=== PATIENT | male | born 1955 | race Caucasian/White ===

== ENCOUNTER 2022-12-28 11:27 | Emergency (ER) | payer OTHER ==
[~2022-12-28] VITALS: Ht 167.6 cm; Wt 103.6 kg
[2022-12-28] MEDS ORDERED: METOPROLOL 5 MG/5 ML VIAL IV STA (13:20)
[2022-12-28] MEDS ORDERED: METOPROLOL TART 25 MG TABLET PO ONE (13:20)
[2022-12-28 13:59] LABS: BASO % 0.4 % (0.0-1.0); EOS # 0.2 10^3/uL (0.0-0.5); EOS % 1.5 % (0.0-3.0); HEMATOCRIT 48.7 % (42.0-52.0); HEMOGLOBIN 16.9 g/dl (13.5-17.5); LYMPH % 19.9 % (24.0-44.0); MEAN CORPUSCULAR HEMOGLOBIN 31.3 pg (27.0-33.0); MEAN CORPUSCULAR HGB CONC 34.7 g/dl (32.0-36.5); MEAN CORPUSCULAR VOLUME 90.2 fl (80.0-96.0); MONO # 0.7 10^3/uL (0.0-0.8); MONO % 6.8 % (2.0-8.0); NEUTROPHILS # 7.2 10^3/uL (1.5-8.5); PLATELET COUNT, AUTOMATED 266 10^3/uL (150-450); WHITE BLOOD COUNT 10.1 10^3/uL (4.0-10.0)
[2022-12-28 14:20] LABS: APPEARANCE, URINE CLEAR (CLEAR); BACTERIA, URINE AUTO NEGATIVE (NEGATIVE); BILIRUBIN, URINE AUTO NEGATIVE (NEGATIVE); BLOOD, URINE BLOOD NEGATIVE (NEGATIVE); COLOR, URINE YELLOW (YELLOW); GLUCOSE, URINE (UA) AUTO NEGATIVE (NEGATIVE); KETONE, URINE AUTO TRACE mg/dL (NEGATIVE); LEUKOCYTE ESTERASE, URINE AUTO NEGATIVE (NEGATIVE); MUCUS, URINE SMALL (NEGATIVE); NITRITE, URINE AUTO NEGATIVE (NEGATIVE); PROTEIN, URINE AUTO NEGATIVE (NEGATIVE); RBC, URINE AUTO 1 /HPF (0-3); SPECIFIC GRAVITY URINE AUTO 1.015 (1.002-1.035); SQUAMOUS EPITHELIAL CELL UR AU 0 /HPF (0-6); UROBILINOGEN, URINE AUTO 0.2 mg/dL (0.0-2.0); WBC, URINE AUTO 0 /HPF (0-3)
[2022-12-28 14:25] LABS: LIPASE 32 U/L (12-53)
[2022-12-28 14:30] LABS: ALBUMIN 4.2 G/DL (3.2-5.2); ALKALINE PHOSPHATASE 94 U/L (46-116); ALT/SGPT 60 U/L (7.0-40); AST/SGOT 32 U/L (<34); BILIRUBIN,DIRECT < 0.1 MG/DL (<0.4); BILIRUBIN,TOTAL 0.4 MG/DL (0.3-1.2); BLOOD UREA NITROGEN 18 MG/DL (9-23); CALCIUM LEVEL 9.7 MG/DL (8.3-10.6); CARBON DIOXIDE LEVEL 27 MMOL/L (20-31); CHLORIDE LEVEL 105 MMOL/L (98-107); CREATININE FOR GFR 0.79 MG/DL (0.70-1.30); FREE T4 1.28 NG/DL (0.89-1.76); GLOMERULAR FILTRATION RATE > 60.0 (>49); GLUCOSE, FASTING 100 MG/DL (74-106); POTASSIUM SERUM 4.7 MMOL/L (3.5-5.1); SODIUM LEVEL 140 MMOL/L (136-145); TOTAL PROTEIN 7.7 G/DL (5.7-8.2)
[2022-12-28] MEDS ORDERED: CARVedilol 12.5 MG TAB PO STA (14:59)
[2022-12-28 15:15] VITALS: BP 149/82
[2022-12-28] MEDS ORDERED: CARV12.5 PO (16:28)
[2022-12-28] MEDS ORDERED: LISI10TA22 PO (16:28)
[2022-12-28 16:47] VITALS: BP 166/83
== END 2022-12-28 16:54 | disposition home or self-care (01) ==
LOC: M ED 11:27
DX: I10 Essential (primary) hypertension (principal); F17.210 Nicotine dependence, cigarettes, uncomplicated
CPT/HCPCS: 36415; 71045; 80048; 80076; 81001; 83690; 83880; 84439; 84443; 85025; 93005; 93041; 94760; 96374; 99285; G0463

== ENCOUNTER 2024-03-28 10:22 | Emergency (ER) | payer OTHER ==
[~2024-03-28] VITALS: Ht 165.1 cm; Wt 104.2 kg
[~2024-03-28 10:22] MED LIST: CARV12.5 PO; LISI10TA22 PO
[2024-03-28] MEDS: MORPHINE 2 MG/ML 1ML VIAL IV ONE (12:16)
[2024-03-28] MEDS: NS 500 ML IV ONE ×2 (12:35→13:15)
[2024-03-28] MEDS: ACETAMINOPHEN *IV* 1,000 MG in IV 1 EA IV ONE (13:14)
[2024-03-28] MEDS: KETOROLAC 30 MG/ML 1ML VIAL IV ONE (13:15)
[2024-03-28 16:43] VITALS: BP 145/74; TEMP 97; O2SAT 96
== END 2024-03-28 16:46 | disposition home or self-care (01) ==
LOC: M ED 10:22
DX: S43.004A Unspecified dislocation of right shoulder joint, initial encounter (principal); W11.XXXA Fall on and from ladder, initial encounter; Y92.009 Unspecified place in unspecified non-institutional (private) residence as the place of occurrence of the external cause; Y93.9 Activity, unspecified; Y99.9 Unspecified external cause status; I10 Essential (primary) hypertension
CPT/HCPCS: 23650; 70450; 72125; 73000; 73030; 73200; 96361; 96365; 96375; 99284; J0131; J1885

== ENCOUNTER → 2024-04-08 | Outpatient (CLI) | payer OTHER | LOC: M SOG 13:32 | PROVIDERS: ATTEND Physician Assistant | DX: S43.014A Anterior dislocation of right humerus, initial encounter (principal); W18.30XA Fall on same level, unspecified, initial encounter; Y92.009 Unspecified place in unspecified non-institutional (private) residence as the place of occurrence of the external cause ==

== ENCOUNTER → 2024-04-21 | Outpatient (CLI) | payer OTHER | LOC: M RAD 10:58 | PROVIDERS: ATTEND Physician Assistant | DX: S43.014D Anterior dislocation of right humerus, subsequent encounter (principal); S46.011D Strain of muscle(s) and tendon(s) of the rotator cuff of right shoulder, subsequent encounter ==